=== PATIENT | female | born 1960 | race Caucasian/White ===

== ENCOUNTER 2018-05-21 06:13 | Day surgery (SDC) | payer OTHER ==
[~2018-05-21] VITALS: Ht 160 cm; Wt 90.7 kg
[2018-05-21] MEDS ORDERED: KETOROLAC 30 MG/ML VIAL ONE (07:56)
[2018-05-21] MEDS ORDERED: LIDOCAINE 2% 100 MG/5 ML UJET TP ONE (07:57)
== END 2018-05-21 09:38 | disposition home or self-care (01) ==
LOC: MDS 06:13 → MMU 06:20 → MDS 09:38
PROVIDERS: ATTEND Internal Medicine Gastroenterology
DX: Z12.11 Encounter for screening for malignant neoplasm of colon (principal); D12.2 Benign neoplasm of ascending colon; D12.0 Benign neoplasm of cecum; D12.3 Benign neoplasm of transverse colon; I10 Essential (primary) hypertension; E11.9 Type 2 diabetes mellitus without complications; E66.9 Obesity, unspecified; Z68.35 Body mass index [BMI] 35.0-35.9, adult; Z79.4 Long term (current) use of insulin; Z79.899 Other long term (current) drug therapy; Z98.890 Other specified postprocedural states
CPT/HCPCS: 45385; 82948; J1885

== ENCOUNTER 2020-09-21 06:16 | Day surgery (SDC) | payer OTHER, SELFPAY ==
[~2020-09-21] VITALS: Ht 160 cm; Wt 86.2 kg
[2020-09-21] MEDS ORDERED: fentaNYL citrate 0.05 MG/ML VIAL ONE (08:20)
[2020-09-21] MEDS ORDERED: LIDOCAINE 2% 100 MG/5 ML UJET TP ONE ×2 (08:20→09:25)
[2020-09-21] MEDS ORDERED: MIDAZOLAM 5 MG/5 ML VIAL ONE (08:20)
[2020-09-21] MEDS ORDERED: SIMETHICONE 40 MG/0.6 ML PO PRN (09:25)
[2020-09-21] MEDS ORDERED: fentaNYL citrate 0.05 MG/ML VIAL IVP ONE (09:25)
[2020-09-21] MEDS ORDERED: SIMETHICONE 40 MG/0.6 ML ONE (09:25)
== END 2020-09-21 09:38 | disposition home or self-care (01) ==
LOC: MDS 06:16 → MFCC 06:17 → MDS 09:38
PROVIDERS: ATTEND Internal Medicine Gastroenterology
DX: R10.84 Generalized abdominal pain (principal); D12.2 Benign neoplasm of ascending colon; D12.3 Benign neoplasm of transverse colon; K76.0 Fatty (change of) liver, not elsewhere classified; E66.9 Obesity, unspecified; Z86.010 Personal history of colon polyps; Z20.828 Contact with and (suspected) exposure to other viral communicable diseases; Z68.33 Body mass index [BMI] 33.0-33.9, adult
CPT/HCPCS: 45385; J3010; U0003; J2250